=== PATIENT | female | born 1990 | race Caucasian/White ===

== ENCOUNTER 2022-10-21 11:56 | Emergency (ER) | payer SELFPAY ==
[2022-10-21] MEDS ORDERED: Sodium Chloride 0.9% 1,000 ML ONE (12:29)
[2022-10-21] MEDS ORDERED: Morphine 4 MG/ML VIAL ONE (12:45)
[2022-10-21 13:14] LABS: Anion Gap 14 mmol/L (10-20); BUN (Urea Nitrogen) 11 mg/dL (7.0-18.7); Calc. Creatinine Clearance 0 mL/min (70-130); Carbon Dioxide 20 mmol/L (22-29); Chloride 106 mmol/L (98-107); Potassium 3.8 mmol/L (3.5-5.1); Sodium 136 mmol/L (136-145)
[2022-10-21 13:15] LABS: ALT (SGPT) 40 U/L (8-55); AST (SGOT) 28 U/L (5-34); Albumin 3.9 g/dL (3.5-5.0); Alkaline Phosphatase 85 U/L (40-110); Bilirubin, Total 0.6 mg/dL (0.2-1.2); Calcium 8.9 mg/dL (7.8-10.44); Estimated GFR 119; Globulin 2.4 g/dL (2.4-3.5); Glucose 109 mg/dL (70-105); Lipase 4 U/L (8-78); Protein, Total 6.3 g/dL (6.0-8.3)
[2022-10-21 13:19] LABS: Bilirubin Negative (Negative); Blood, Urine Negative (Negative); Clarity Clear (Clear); Glucose, Urine (Dipstick) Negative (Negative); Ketone, Urine Negative (Negative); Leukocyte Negative (Negative); Nitrite Negative (Negative); Protein, Urine (Dipstick) Negative (Neg-Trace); Urobilinogen 0.2 mg/dL (Less than 2)
[2022-10-21 13:20] LABS: CAUTI Indications for Culture Pelvic or flank pain; Specific Gravity, Urine 1.026 (1.002-1.036)
[2022-10-21 13:23] LABS: Bacteria/HPF 1+ HPF (None Seen); RBC/HPF 0-3 HPF (0-3); WBC/HPF 0-3 HPF (0-3)
[2022-10-21 13:24] LABS: Mucous/LPF 1+ LPF (<2+); Urine Culture Reflex No No
[2022-10-21 13:25] LABS: #Basophils 0.1 thou/uL (0.0-0.2); #Eosinphils 0.2 thou/uL (0.0-0.7); #Lymphocytes 1.7 thou/uL (1.20-3.40); #Monocytes 0.6 thou/uL (0.11-0.59); #Neutrophils 8.7 thou/uL (1.40-6.50); %Eosinophils 1.6 % (0.0-10.0); %Lymphocytes 15.1 % (21.0-51.0); %Neutrophils 77.3 % (42.0-75.0); Hematocrit 33.4 % (36.0-47.0); Hemoglobin 11.6 g/dL (12.0-16.0); Mean Corpuscular HGB CONC 34.7 g/dL (32.0-36.0); Mean Corpuscular Hemoglobin 31.9 pg (27.0-31.0); Mean Corpuscular Volume 92.1 fl (78.0-98.0); Mean Platelet Volume 6.1 fL (7.4-10.4); Platelet Count 310 10x3/uL (130-400); RBC Distribution Width 11.5 % (11.5-14.5); Red Blood Cell (RBC) Count 3.62 mill/uL (4.20-5.40); White Blood Cell (WBC) Count 11.3 10x3/uL (4.8-10.8)
[2022-10-21] MEDS ORDERED: Morphine 2 MG/ML VIAL ONE (14:08)
== END 2022-10-21 14:18 | disposition home or self-care (01) ==
LOC: NAV ERS 11:56
DX: O99.891 Other specified diseases and conditions complicating pregnancy (principal); R07.9 Chest pain, unspecified; O99.331 Smoking (tobacco) complicating pregnancy, first trimester; F17.210 Nicotine dependence, cigarettes, uncomplicated; Z3A.01 Less than 8 weeks gestation of pregnancy
CPT/HCPCS: 36415; 51701; 71045; 80053; 81001; 83690; 84484; 84702; 85025; 85379; 86900; 86901; 93005; 96374; 96376; J2270; J2272; J7050

== ENCOUNTER 2022-10-23 14:21 | Emergency (ER) | payer OTHER ==
[~2022-10-23 14:21] MED LIST: Iopamidol 370 76% 100 ML VIAL ONE
[2022-10-23] MEDS ORDERED: Lidocaine 1% (PF) 30 ML VIAL ONE ×2 (16:01→16:06)
== END 2022-10-23 17:16 | disposition home or self-care (01) ==
LOC: NAV ERS 14:21
DX: T81.31XA Disruption of external operation (surgical) wound, not elsewhere classified, initial encounter (principal); J98.11 Atelectasis; N93.8 Other specified abnormal uterine and vaginal bleeding; F17.210 Nicotine dependence, cigarettes, uncomplicated
CPT/HCPCS: 71275; 84702; 94799; J2001; Q9967